=== PATIENT | male | born 1975 | race African-American/Black ===

== ENCOUNTER 2024-01-11 00:10 | Inpatient (IN) | payer MEDICAID ==
[~2024-01-11] VITALS: Ht 182.9 cm; Wt 82.0 kg
[2024-01-11 00:13] VITALS: O2SAT 100
[2024-01-11 00:55] LABS: BASOPHILS % 0.4 % (0.0-2.0); EOSINOPHILS % 1.2 % (0.0-5.0); HEMATOCRIT. 34.8 % (42.0-52.0); HEMOGLOBIN. 11.3 g/dL (14.0-18.0); LYMPHOCYTES % 17.4 % (20.0-50.0); MEAN CORPUSCULAR HEMOGLOBIN 26.3 pg (28.0-32.0); MEAN CORPUSCULAR HGB CONC 32.4 g/dL (31.0-37.0); MEAN CORPUSCULAR VOLUME 81.1 fL (80.0-94.0); MEAN PLATELET VOLUME 7.2 fl (7.4-10.4); MONOCYTES % 11.5 % (2.0-8.0); NEUTROPHILS % 69.5 % (40.0-76.0); PLATELET 397 x1000/uL (130-400); RED BLOOD CELL COUNT 4.29 mill/uL (4.7-6.1); RED CELL DISTRIBUTION WIDTH 14.7 % (11.6-14.6); WHITE BLOOD COUNT 5.2 x1000/uL (4.5-11.0)
[2024-01-11 01:04] LABS: CARBON DIOXIDE 30 mEq/L (21-32); CHLORIDE 105 mEq/L (98-107); POTASSIUM 4.3 mEq/L (3.5-5.1); SODIUM 138 mEq/L (136-145)
[2024-01-11 01:05] LABS: CALCIUM 9.4 mg/dL (8.7-10.4)
[2024-01-11 01:09] LABS: GLUCOSE 90 mg/dL (70-105)
[2024-01-11 01:10] LABS: UREA NITROGEN BLOOD 14 mg/dL (9-23)
[2024-01-11 01:11] LABS: ALANINE AMINOTRANSFERASE 17 IU/L (10-49); ALBUMIN 4.2 g/dL (3.2-4.8); ASPARTATE AMINOTRANSFERASE 13 IU/L (<34)
[2024-01-11 01:12] LABS: BILIRUBIN TOTAL 0.3 mg/dL (0.1-1.0); PROTEIN TOTAL 7.3 g/dL (6.0-8.3)
[2024-01-11] MEDS: ONDANSETRON HCL 4MG/2ML INJ IV STA (01:35)
[2024-01-11] MEDS: FAMOTIDINE 20MG/2ML VIAL IV STA (01:35)
[2024-01-11] MEDS: MORPHINE SULFATE 4 MG/ML INJ (FOR IV/IM USE) IV STA (01:47)
[2024-01-11] MEDS: SODIUM CHLORIDE 0.9% 1,000 ML IV ONE (01:48)
[2024-01-11 01:57] LABS: BILIRUBIN DIRECT < 0.1 mg/dL (<=3.0); TROPONIN I HIGH SENSITIVITY < 4 ng/L (3.0-53)
[2024-01-11 01:58] LABS: ETHANOL BLOOD < 10 mg/dL (<10)
[2024-01-11 03:23] LABS: CLARITY URINE CLEAR (CLEAR); COLOR URINE YELLOW (YELLOW); GLUCOSE URINE NEGATIVE (NEGATIVE); KETONES URINE TRACE (NEGATIVE); LEUKOCYTE ESTERASE URINE NEGATIVE (NEGATIVE); NITRITE URINE NEGATIVE (NEGATIVE); OCCULT BLOOD URINE NEGATIVE (NEGATIVE); PROTEIN URINE NEGATIVE (NEGATIVE); SPECIFIC GRAVITY URINE 1.027 (1.005-1.030); UROBILINOGEN URINE 0.2 E.U./dL (0.2-1.0)
[2024-01-11] MEDS ORDERED: CLONIDINE 0.1MG TABLET PO PRN (09:30)
[2024-01-11] MEDS ORDERED: DIPHENHYDRAMINE 50MG/ML VIAL IV PRN (09:30)
[2024-01-11] MEDS ORDERED: ONDANSETRON HCL 4MG/2ML INJ IV PRN (09:30)
[2024-01-11] MEDS ORDERED: IPRATROPIUM/ALBUTEROL 0.5-3(2.5)MG/3ML NEB HHN PRN (09:30)
[2024-01-11] MEDS: SODIUM CHLORIDE 0.9% 1,000 ML IV SCH (09:52)
[2024-01-11 11:53] VITALS: BP 131/81; PULSE 88; RESP 16; TEMP 36.94740; O2SAT 100
[2024-01-11] MEDS ORDERED: METOCLOPRAMIDE HCL 10MG/2ML VIAL IV SCH (12:15)
[2024-01-11] MEDS ORDERED: SENNOSIDES 8.6MG TABLET PO SCH (21:00)
[2024-01-11] MEDS ORDERED: DOCUSATE SODIUM 100MG CAPSULE PO SCH (21:00)
== END 2024-01-11 12:40 | disposition left against medical advice (07) | DRG 247 ==
LOC: ER 00:10 → EDBD 03:49 → 5WST 03:49 → EDBEDREQTM 03:52 → EDBEDREQ 03:52
PROVIDERS: ADMIT Internal Medicine; ATTEND Internal Medicine
DX: K56.7 Ileus, unspecified (principal); Z53.29 Procedure and treatment not carried out because of patient's decision for other reasons; K56.41 Fecal impaction; Z79.899 Other long term (current) drug therapy
CPT/HCPCS: 36415; 74176; 80048; 80076; 80320; 81003; 84484; 85025; 99285; J2270; J2405; J3490; J7030; G0480